=== PATIENT | male | born 1955 | race Hispanic/Latino ===

== ENCOUNTER 2020-11-21 12:55 | Emergency (ER) | payer MEDICARE ==
[2020-11-21 13:48] LABS: Absolute Lymphocytes (CBC) 1.7 K/uL (0.7-4.9); Basophils % 0.9 % (0-1.3); Hematocrit 43.7 % (39.6-49.0); Lymphocytes % 22.8 % (15.3-44.8); MPV 10.3 fL (7.6-11.3); RBC Red Blood Cell Count 4.57 M/uL (4.33-5.43)
[2020-11-21 13:49] LABS: Protime INR 0.91
[2020-11-21] MEDS ORDERED: ONDANSETRON 4 MG/2 ML VIAL ONE (13:49)
[2020-11-21] MEDS ORDERED: MORPHINE 4 MG/ML SYR ONE (13:49)
[2020-11-21 14:08] LABS: ALT/SGPT 59 U/L (12-78); AST/SGOT 44 U/L (15-37); Alkaline Phosphatase 69 U/L (45-117); BUN Blood Urea Nitrogen 16 mg/dL (7-18); Bicarbonate 25 mmol/L (21-32); Bilirubin Direct 0.2 mg/dL (0-0.2); Bilirubin Total 0.6 mg/dL (0.2-1.0); Glucose Level 103 mg/dL (74-106); Magnesium 2.4 mg/dL (1.8-2.4); NT PRO-BNP 178 pg/mL (<125); Potassium 4.6 mmol/L (3.5-5.1); Protein, Total 7.9 g/dL (6.4-8.2); Sodium Level 141 mmol/L (136-145); Troponin (Emerg Dept Use Only) < 0.02 ng/mL (0.0-0.045)
--- NOTE | 2020-11-21 14:19 | RAD REPORT ---
EXAM DESCRIPTION: RAD - Chest Single View - 11/21/2020 1:57 pm CLINICAL HISTORY: SOB, chest pain COMPARISON: October 2015 TECHNIQUE: AP portable chest image was obtained 11/21/2020 1:57 pm . FINDINGS: Lungs are clear. Heart and vasculature are normal. No measurable pleural effusion and no p neumothorax. No gross rib deformity seen. Rib detail can be further assessed on dedicated rib films o r CT imaging as warranted. Patient has degenerative change superior margin left SI joint with postsur gical change at the right SI joint. No acute aortic findings suspected. IMPRESSION: No acute cardiopulmonary process.
--- NOTE | 2020-11-21 14:47 | RAD REPORT ---
EXAM DESCRIPTION: CT - C Spine Wo Con - 11/21/2020 2:26 pm CLINICAL HISTORY: Fall, chest pain, neck pain COMPARISON: None. TECHNIQUE: Axial 2 mm thick images of the cervical spine were obtained with sagittal and coronal rec onstruction images generated and reviewed. All CT scans are performed using dose optimization technique as appropriate and may include automated exposure control or mA/KV adjustment according to patient size. FINDINGS: Cervical bodies are normal in height. Alignment is normal except for very slight anterior subluxation of C7 on T1. Degenerative changes are present at the dens -anterior arch C1 level. No fra cture or acute bony abnormality. C2-3 disc space level is normal. Mild facet joint degenerative changes are present at this level. C3- C5 fusion changes are present with well-healed fusion across the joint spaces. Anterior fusion hardwa re is in place. There is C5-6 and C6-7 fusion changes without hardware present. C7-T1 joint space is narrowed with degenerative gas in the disc space. There is endplate spurring pre sent. Mild bony foraminal encroachment is present. No central canal stenosis present. Central canal detail is inherently limited on CT imaging. IMPRESSION: Cervical fusion changes are present spanning C3-C7. No fracture or acute finding seen. C7-T1 degenerative disc disease with C2-3 facet joint degenerative change.
--- NOTE | 2020-11-21 14:53 | RAD REPORT ---
EXAM DESCRIPTION: CT - Chest For Pe Angio - 11/21/2020 2:35 pm CLINICAL HISTORY: chest pain, back pain, fall COMPARISON: THORAX WO CONTRAST dated 10/26/2015 TECHNIQUE: Dynamically enhanced 3 mm thick images of the chest were obtained during administration o f approximately 150mL Isovue 370 IV contrast. Coronal and oblique MIP reconstruction images were gene rated and reviewed. Exam utilizes a protocol to evaluate the pulmonary arterial tree. All CT scans are performed using dose optimization technique as appropriate and may include automated exposure control or mA/KV adjustment according to patient size. FINDINGS: No pulmonary emboli are identified. The aorta as imaged shows no acute or suspicious finding. No pericardial thickening or effusion. No pulmonary contusion or acute lung parenchymal process identifiable. No pleural effusion or pleural thickening. No mediastinal or hilar suspicious masses. No chest wall masses or abnormal axillary lymphadenopathy. Degenerative bony hypertrophy is present at the sternal manubrium junction from degenerative change o r old trauma. An acute sternum finding is not confirmed. Patient has subtle buckling of the right ant erior second and third ribs. This is not definitive for fracture and there is no history that indicat es pain in this location. The entirety of the ribcage is not imaged on PE protocol study. No thoracic compression fracture. IMPRESSION: No pulmonary emboli identified. No acute traumatic injury to the lung parenchyma or mediastinum. No definitive acute injury in the partially imaged ribcage. Slight buckling of the cortex anterior ri ght second and third ribs present.No specific history to indicate pain in this location. Correlation can be made with history and exam findings.
--- NOTE | 2020-11-21 15:15 | ER ---
Nurse's Notes [facility] Name: Jaime Childs Age: 65 yrs Sex: Male : 1955 Arrival Date: 11/21/2020 Time: 12:59 Bed 4 Private MD: Diagnosis: Chest pain, unspecified;Strain of muscle, fascia and tendon at neck level;Strain of muscle, fascia and tendon of abdomen, lower back and pelvis;Strain of muscle, fascia and tendon of lower back Presentation: 11/21 13:05 Chief complaint: Patient states: Left leg fell through [place] at his apartment up to ll1 his knee 2 weeks. ago. States he has upper chest and upper back pain since accident. + SOB also. Coronavirus screen: Client denies travel out of the [place] in the last 14 days. difficulty breathing, shortness of breath, Client presents with at least one sign or symptom that may indicate coronavirus-19. Standard/surgical mask placed on the client. Ebola Screen: Patient denies travel to an Ebola-affected area in the 21 days before illness onset. Initial Sepsis Screen: Does the patient meet any 2 criteria? No. Patient's initial sepsis screen is negative. Does the patient have a suspected source of infection? No. Patient's initial sepsis screen is negative. Risk Assessment: Do you want to hurt yourself or someone else? Patient reports no desire to harm self or others. Onset of symptoms was December 06, 2020. 13:05 Method Of Arrival: Ambulatory ll1 13:05 Acuity: GIANNI 3 ll1 Historical: - Allergies: 13:05 No Known Allergies; ll1 - PMHx: 13:05 Hypertension; ll1 - PSHx: 13:05 neck/shoulder sx's; ll1 - Immunization history:: Flu vaccine is up to date. - Social history:: Smoking status: Patient denies any tobacco usage or history of. Screenin:20 Abuse screen: Denies threats or abuse. Denies injuries from another. Nutritional ph screening: No deficits noted. Tuberculosis screening: No symptoms or risk factors identified. Fall Risk None identified. Assessment: 13:36 General: Appears in no apparent distress. uncomfortable, slender, Behavior is calm, ph cooperative, appropriate for age, Denies fever, feeling ill. Pain: Complains of pain in mid-sternal area. Neuro: Level of Consciousness is awake, alert, obeys commands, Oriented to person, place, time, situation. Cardiovascular: Reports chest pain, Denies nausea, vomiting, Capillary refill < 3 seconds in bilateral Patient's skin is warm and dry. Respiratory: Reports pain with movement pain with respiration Airway is patent Respiratory effort is even, unlabored, Respiratory pattern is regular, symmetrical, Denies cough, shortness of breath. GI: No signs and/or symptoms were reported involving the gastrointestinal system. Derm: Skin is intact, is healthy with good turgor, Skin is pink, warm \T\ dry. Musculoskeletal: Circulation, motion, and sensation intact. Range of motion: intact in all extremities. Vital Signs: 13:05 BP 206 / 106; Pulse 71; Resp 17; Temp 97.7; Pulse Ox 98% ; Weight 72.57 kg; Height 5 ll1 ft. 10 in. (177.80 cm); Pain 10/10; 13:38 BP 194 / 93; Pulse 61; Resp 22; Pulse Ox 98% on R/A; ph 15:00 BP 178 / 89; Pulse 59; Resp 18; Temp 97.9; Pulse Ox 98% on R/A; ph 13:05 Body Mass Index 22.96 (72.57 kg, 177.80 cm) 1 ED Course: 12:59 Patient arrived in ED. mr 13:05 Arm band placed on Patient placed in an exam room, on a stretcher. 1 13:06 Warner Medrano PA is PHCP. [facility] 13:06 Smooth Norris MD is Attending Physician. [facility] 13:07 Triage completed. ll1 13:19 So Black, RN is Primary Nurse. ph 13:21 Patient has correct armband on for positive identification. Bed in low position. Call light in reach. Side rails up X 1. Pulse ox on. NIBP on. Door closed. Noise minimized. 13:36 Initial lab(s) drawn, by me, sent to lab. Inserted saline lock: 22 gauge in right ph forearm, using aseptic technique. Blood collected. 13:57 XRAY Chest (1 view) In Process Unspecified. EDMS 14:27 CT C Spine In Process Unspecified. EDMS 14:35 CT Chest For PE Angio In Process Unspecified. EDMS 16:08 No provider procedures requiring assistance completed. IV discontinued, intact, ph bleeding controlled, No redness/swelling at site. Pressure dressing applied. Administered Medications: 13:35 Drug: Zofran (Ondansetron) 4 mg Route: IVP; Site: left forearm; ph 16:09 Follow up: Response: No adverse reaction ph 13:37 Drug: morphine 4 mg Route: IVP; Site: left forearm; ph 16:09 Follow up: Response: No adverse reaction; Pain is decreased; RASS: Alert and Calm (0) ph Outcome: 15:15 Discharge ordered by . piyush 16:08 Discharged to home ambulatory. ph 16:08 Condition: good 16:08 Discharge instructions given to patient, Instructed on discharge instructions, follow up and referral plans. medication usage, Demonstrated understanding of instructions, follow-up care, medications, Prescriptions given X 1. 16:10 Patient left the ED. ph Signatures: Dispatcher [employer] EDSC Warner Medrano PA PA Sophie Cardenas Patricia, RN RN ph Destiny Trammell RN RN ll1
--- NOTE | 2020-11-21 15:15 | EDPHYS ---
Physician Documentation [facility] Name: Jaime Childs Age: 65 yrs Sex: Male : 1955 Arrival Date: 11/21/2020 Time: 12:59 Bed 4 Private MD: ED Physician Smooth Norris HPI: 11/21 13:25 This 65 yrs old Male presents to ER via Ambulatory with complaints of Fall jmm Injury, Breathing Difficulty, Back Pain. 13:25 Details of fall: The patient fell from a height. Onset: The symptoms/episode jmm began/occurred acutely, 2 week(s) ago. Associated injuries: The patient sustained injury to the low back. This is a 65 year old male with a history of htn and chronic back pain that presents to the ED with complaints of ongoing neck pain, chest pain, back pain since falling through his floor approx 2 weeks ago during the winter. patient also complains of lower back pain. . Historical: - Allergies: 13:05 No Known Allergies; ll1 - PMHx: 13:05 Hypertension; ll1 - PSHx: 13:05 neck/shoulder sx's; ll1 - Immunization history:: Flu vaccine is up to date. - Social history:: Smoking status: Patient denies any tobacco usage or history of. ROS: 13:25 Constitutional: Negative for fever, chills, and weight loss. jmm 13:25 Neck: Positive for pain with movement. 13:25 Cardiovascular: Positive for chest pain. 13:25 Abdomen/GI: Negative for abdominal pain. 13:25 Back: Positive for pain with movement. 13:25 All other systems are negative. Exam: 13:25 Head/Face: atraumatic. Eyes: EOMI, no conjunctival erythema appreciated ENT: Moist jmm Mucus Membranes 13:25 Abdomen/GI: Non distended, soft Skin: General appearance color normal MS/ Extremity: Moves all extremities, no obvious deformities appreciated, no edema noted to the lower extremities Neuro: Awake and alert, normal gait Psych: Behavior is normal, Mood is normal, Patient is cooperative and pleasant 13:25 Constitutional: The patient appears alert, awake, uncomfortable. 13:25 Neck: C-spine: mid line tenderness on palpation, patient is able to rotate 45 degress. 13:25 Chest/axilla: Palpation: tenderness, that is moderate, of the mid-sternal area, that totally reproduces the patient's complaints. 13:25 Back: paraspinal lower back pain on palpation. 14:13 ECG was reviewed by the Attending Physician. [facility] Vital Signs: 13:05 BP 206 / 106; Pulse 71; Resp 17; Temp 97.7; Pulse Ox 98% ; Weight 72.57 kg; Height 5 ll1 ft. 10 in. (177.80 cm); Pain 10/10; 13:38 BP 194 / 93; Pulse 61; Resp 22; Pulse Ox 98% on R/A; ph 15:00 BP 178 / 89; Pulse 59; Resp 18; Temp 97.9; Pulse Ox 98% on R/A; ph 13:05 Body Mass Index 22.96 (72.57 kg, 177.80 cm) ll1 MDM: 13:06 Patient medically screened. [facility] 15:13 Data reviewed: vital signs, nurses notes. Counseling: I had a detailed discussion with [facility] the patient and/or guardian regarding: the historical points, exam findings, and any diagnostic results supporting the discharge/admit diagnosis, lab results, radiology results, the need for outpatient follow up, to return to the emergency department if symptoms worsen or persist or if there are any questions or concerns that arise at home. ED course: Pain relieved in the ED. Symptoms have been constant for 2 weeks. I do not suspect ACS. Imaging studies negative for any acute process. Patient is advised to follow up with pcp. Patient understood and agrees with the plan of care. . 11/21 13:09 Order name: Basic Metabolic Panel [facility] 11/21 13:09 Order name: CBC with Diff; Complete Time: 13:55 [facility] 11/21 13:09 Order name: LFT's; Complete Time: 14:10 [facility] 11/21 13:09 Order name: Magnesium; Complete Time: 14:10 [facility] 11/21 13:09 Order name: NT PRO-BNP; Complete Time: 14:10 [facility] 11/21 13:09 Order name: PT-INR; Complete Time: 13:55 [facility] 11/21 13:09 Order name: Troponin (emerg Dept Use Only); Complete Time: 14:10 [facility] 11/21 13:09 Order name: XRAY Chest (1 view); Complete Time: 14:21 [facility] 11/21 13:09 Order name: EKG; Complete Time: 13:10 m 11/21 13:09 Order name: Basic Metabolic Panel; Complete Time: 14:10 EDID 11/21 14:11 Order name: CT Chest For PE Angio; Complete Time: 14:55 jmm 11/21 14:11 Order name: CT C Spine; Complete Time: 14:50 jmm 11/21 13:09 Order name: Cardiac monitoring; Complete Time: 13:39 [facility] 11/21 13:09 Order name: EKG - Nurse/Tech; Complete Time: 13:39 jmm 11/21 13:09 Order name: IV Saline Lock; Complete Time: 13:39 jmm 11/21 13:09 Order name: Labs collected and sent; Complete Time: 13:39 m 11/21 13:09 Order name: O2 Per Protocol; Complete Time: 13:39 m 11/21 13:09 Order name: O2 Sat Monitoring; Complete Time: 13:39 jmm EC:13 Rate is 72 beats/min. Rhythm is regular. QRS [place] is Normal. DC interval is normal. QRS jmm interval is normal. QT interval is normal. No Q waves. T waves are Normal. No ST changes noted. Administered Medications: 13:35 Drug: Zofran (Ondansetron) 4 mg Route: IVP; Site: left forearm; ph 16:09 Follow up: Response: No adverse reaction ph 13:37 Drug: morphine 4 mg Route: IVP; Site: left forearm; ph 16:09 Follow up: Response: No adverse reaction; Pain is decreased; RASS: Alert and Calm (0) ph Disposition: 16:54 Co-signature as Attending Physician, Smooth Norris MD. rn Disposition: 11/21/20 15:15 Discharged to Home. Impression: Chest pain, unspecified, Strain of muscle, fascia and tendon at neck level, Strain of muscle, fascia and tendon of abdomen, lower back and pelvis, Strain of muscle, fascia and tendon of lower back. - Condition is Stable. - Discharge Instructions: Nonspecific Chest Pain, Muscle Strain. - Prescriptions for Zanaflex 4 mg Oral Tablet - take 1 tablet by ORAL route every 8 hours As needed; 20 tablet. - Medication Reconciliation Form, Thank You Letter, Antibiotic Education, Prescription Opioid Use form. - Follow up: Private Physician; When: 2 - 3 days; Reason: Recheck today's complaints, Continuance of care, Re-evaluation by your physician. Signatures: Dispatcher [employer] EDWarner [place] PA PA jmm Nieto, Roman, MD MD rn Hall, Patricia, RN RN ph Destiny Trammell RN RN ll1 Corrections: (The following items were deleted from the chart) 16:10 15:15 11/21/2020 15:15 Discharged to Home. Impression: Chest pain, unspecified; Strain ph of muscle, fascia and tendon at neck level; Strain of muscle, fascia and tendon of abdomen, lower back and pelvis; Strain of muscle, fascia and tendon of lower back. Condition is Stable. Forms are Medication Reconciliation Form, Thank You Letter, Antibiotic Education, Prescription Opioid Use. Follow up: Private Physician; When: 2 - 3 days; Reason: Recheck today's complaints, Continuance of care, Re-evaluation by your physician. piyush
[2020-11-22 13:25] VITALS: O2SAT 98
[2020-11-22 13:28] VITALS: BP 178/89; TEMP 97.9
--- NOTE | 2020-11-23 05:18 | EKG ---
Test Date: 2020-11-21 Test Time: 13:37:50 [facility] Specialist: ULICES MEASUREMENT RESULTS: Intervals: Rate: 72 PA: 140 QRSD: 92 QT: 396 QTc: 433 [place]: P: 27 PA: 140 QRS: -13 T: 36 INTERPRETIVE STATEMENTS: Normal sinus rhythm Normal ECG Compared to ECG 10/25/2015 08:22:54 No significant changes Electronically Signed On 11-23-20 05:12:00 POT FLUXER by Elvin Bess
== END 2020-11-21 16:10 | disposition home or self-care (01) ==
LOC: ER 12:55
DX: S39.011A Strain of muscle, fascia and tendon of abdomen, initial encounter (principal); S39.012A Strain of muscle, fascia and tendon of lower back, initial encounter; S39.013A Strain of muscle, fascia and tendon of pelvis, initial encounter; S16.1XXA Strain of muscle, fascia and tendon at neck level, initial encounter; W17.89XA Other fall from one level to another, initial encounter; Y93.9 Activity, unspecified; Y92.9 Unspecified place or not applicable; I10 Essential (primary) hypertension
CPT/HCPCS: 93005; 85025; 80048; 36415; 83735; 85610; 80076; 84484; 83880; 72125; 71275; 71045; Q9967; J2405; 96374; 96375; 99284